=== PATIENT | male | born 1960 | race Caucasian/White ===

== ENCOUNTER 2024-06-19 06:16 | Day surgery (SDC) | payer OTHER, SELFPAY | END 2024-06-19 11:24 | disposition home or self-care (01) | LOC: GI 06:16 | PROVIDERS: ATTENDING PHYSICIAN Surgery | DX: Z12.11 Encounter for screening for malignant neoplasm of colon (principal); Z80.0 Family history of malignant neoplasm of digestive organs; K57.30 Diverticulosis of large intestine without perforation or abscess without bleeding; D12.3 Benign neoplasm of transverse colon | CPT/HCPCS: 45385; 88305 ==

== ENCOUNTER → 2024-12-14 09:32 | Outpatient (REF) | payer OTHER, SELFPAY | LOC: RAD 09:32 | PROVIDERS: ATTENDING PHYSICIAN Nurse Practitioner | DX: K40.90 Unilateral inguinal hernia, without obstruction or gangrene, not specified as recurrent (principal) | CPT/HCPCS: 76882 ==

== ENCOUNTER 2025-05-20 05:56 | Day surgery (SDC) | payer OTHER, SELFPAY ==
[2025-05-07 08:55] LABS: Hematocrit 46.6 % (39.0-52.0); Hemoglobin 16.0 g/dL (13.0-18.0); Mean Corp Hgb Conc. 34.3 g/dL (33.0-37.0); Mean Corpuscular Volume 91.2 fL (80.0-94.0); Platelet Count 161 10^3/uL (130-400); Red Cell Dist. Width 13.0 % (11.5-14.5)
[2025-05-07 09:36] LABS: Blood Urea Nitrogen 15 mg/dl (9-20); Calcium 9.5 mg/dl (8.4-10.2); Carbon Dioxide 30 mmol/L (22-30); Chloride 105 mmol/L (98-107); Glucose 103 mg/dl (70-99); Potassium 4.5 mmol/L (3.5-5.1); Sodium 138 mmol/L (135-145); eGFR > 60.00
[2025-05-07 14:02] VITALS: BMI 26.1
[2025-05-20] VITALS (12 sets, daily range): BP systolic 113–137; BP diastolic 64–81; BMI 26.1
[2025-05-20] MEDS: TYLENOL 1000 MG PO (06:14)
[2025-05-20] MEDS: NORMOSOL-R/PLASMALYTE-A 1000 IV (06:29)
--- NOTE | 2025-05-20 06:51 | HP.FOC2 ---
Focused History & Physical
Chief Complaint
HPI:
Chief Complaint: Right inguinal hernia
HPI / Indication for Planned Procedure: Patient is a 64-year-old male recently seen in outpatient surgical evaluation secondary to a 6-month history of a visible and palpable swelling in the right inguinal area. Physical examination confirmed the
presence of a reducible right inguinal hernia. After discussion regarding treatment options the patient wished to pursue operative correction. He presents today for scheduled robotic repair.
Relevant Past Medical History: Other (Sleep apnea (no CPAP))
Relevant Social History: Negative
Relevant Family History: Negative
Relevant Past Surgical History: Positive for (Left total hip, appendectomy, tonsillectomy, hip revision)
Review of Systems
Review of Pertinent Systems: All Systems Negative
Medication
See Medication form for detailed medications: Yes
Medication List (including Herbals & OTC):
No Meds [No Current Medications] 05/14/25
Medications Reviewed: Yes
Allergies and Reactions
Patient has Allergies: No
Noted Allergies and Reactions:
Allergy/AdvReac Type Severity Reaction Status Date / Time
No Known Allergies Allergy Verified 05/20/25 06:12
Pertinent Physical Exam
All Other Systems: Negative
Head/Neck: Normal
Lungs: Normal
Heart: Normal
Abdomen: Other (Reducible right inguinal hernia, right paramedian surgical scar from appendectomy)
Extremities: Normal
Neurological: Normal
Diagnosis / Assessment
64-year-old male presenting for scheduled operative correction symptomatic right inguinal hernia
Plan / Procedure
Robotic assisted laparoscopic repair of right inguinal hernia with mesh
Anesthesia/Sedation to be done by Anesthesia Provider: Yes
--- NOTE | 2025-05-20 06:53 | W.SUR.PREOP ---
Pre-Operative Surgical Note
-
I have examined this patient prior to the performance of the scheduled procedure.
The patient's condition is unchanged from the time of the current History and
Physical and the patient is able to undergo the scheduled procedure.
--- NOTE | 2025-05-20 08:23 | W.IMMPOSTOP ---
Addendum entered and electronically signed by Jordan Bergeron MD 05/20/25 08:44:
#[id number]
Original Note:
Surgical Immed Post Op Note
-
Primary Surgeon: Jordan Bergeron MD
Assisting Surgeon: Margi Koroma PA-C
Pre-op Diagnosis: Right inguinal hernia
Post-op Diagnosis: Right inguinal hernia; indirect
Procedure Performed: Robotic assisted laparoscopic repair right inguinal hernia with mesh
Anesthesia Type: GETA +0.25% Marcaine
Specimen / Cultures: None
Estimated Blood Loss: 4 mL
Complications: None immediate
Operative Findings: Right indirect inguinal hernia. No lipoma of spermatic cord. Direct and femoral spaces normal. Left inguinal region normal. Few filmy omental adhesions along appendectomy scar lysed. No additional significant adhesions
encountered. Preperitoneal plane maintained. 3D max large mid weight mesh repair secured to Jim's ligament with 2-0 Vicryl stitch x 2.
The assistance of Margi Koroma PA-C was required due to the complexity of the procedure. During the procedure Margi Koroma PA-C assisted with port placement, robotic instrumentation and suture material exchanges, and closure of the surgical incision
sites. I was present for the entirety of the operative procedure.
[2025-05-20] MEDS: ZOFRAN 4 MG IV (09:12)
[2025-05-20] MEDS: COMPAZINE 5 MG IV (09:39)
== END 2025-05-20 11:38 | disposition home or self-care (01) ==
LOC: SDS 05:56
PROVIDERS: ATTENDING PHYSICIAN Surgery
DX: K40.90 Unilateral inguinal hernia, without obstruction or gangrene, not specified as recurrent (principal)
CPT/HCPCS: 49650; 80048; 85027; 93005